=== PATIENT | female | born 1945 | race Caucasian/White ===

== ENCOUNTER → 2018-02-24 09:40 | Outpatient (CLI) | payer MEDICARE ==
[2016-03-27 13:09] VITALS: BMI 42.6
[~2018-02-24 09:40] MED LIST: CARDURA2 MG PO; CATAPRES0.1 MG PO; CATAPRES0.2 MG PO; COREG12.5 MG PO; COREG25 MG PO; GLIMEPIRIDE2 MG PO; GLUCOTROL 5 MG T5 MG PO; GLUCOTROL ER2.5 MG PO; HYDRALAZINE HCL50 MG PO; LASIX40 MG PO; NORVASC10 MG PO; NORVASC5 MG PO; PLAVIX75 MG PO; PRILOSEC20 MG PO; PROTONIX40 MG PO; PROZAC10 MG PO; PROZAC20 MG PO; ZOLOFT50 MG PO
== END | disposition home or self-care (01) ==
LOC: D.NM 02-07 11:30
DX: K21.9 Gastro-esophageal reflux disease without esophagitis (principal); R13.10 Dysphagia, unspecified